=== PATIENT | male | born 1990 | race American Indian/Alaskan Native ===

== ENCOUNTER 2020-04-29 08:33 | Emergency (ER) | payer SELFPAY ==
[2020-04-29 08:52] VITALS: BP 133/71
[2020-04-29 10:27] LABS: Bilirubin,Urine NEG (Negative); Blood,Urine NEG (Negative); Color,Urine Amber (Yellow); Mucus,Urine 3+ /HPF
== END 2020-04-29 11:07 | disposition left against medical advice (07) ==
LOC: ED 08:33
DX: R11.2 Nausea with vomiting, unspecified (principal); Z53.21 Procedure and treatment not carried out due to patient leaving prior to being seen by health care provider
CPT/HCPCS: 81001; 87086